=== PATIENT | female | born 1950 | race Caucasian/White ===

== ENCOUNTER → 2017-05-17 | Outpatient (CLI) | payer OTHER | LOC: FIMAGING 13:18 | PROVIDERS: ATTEND Internal Medicine Endocrinology, Diabetes & Metabolism | DX: Z13.820 Encounter for screening for osteoporosis (principal); M85.80 Other specified disorders of bone density and structure, unspecified site; Z82.62 Family history of osteoporosis ==

== ENCOUNTER → 2017-08-11 | Outpatient (CLI) | payer OTHER | LOC: FIMAGING 12:51 | PROVIDERS: ATTEND Internal Medicine | DX: Z12.31 Encounter for screening mammogram for malignant neoplasm of breast (principal); Z86.000 Personal history of in-situ neoplasm of breast; Z90.11 Acquired absence of right breast and nipple | CPT/HCPCS: G0202-52 ==

== ENCOUNTER 2017-08-14 15:42 | Emergency (ER) | payer OTHER ==
[2017-08-14 16:08] VITALS: RESP 18
--- NOTE | 2017-08-14 16:40 | CPEKG ---
Heart Rate: 72 RR Interval: 833 P-R Interval: 172 QRSD Interval: 96 QT Interval: 412 QTC Interval: 451 P [place]: 63 QRS [place]: 23 T Wave [place]: 52 EKG Severity - NORMAL ECG - EKG Impression: SINUS RHYTHM Electronically Signed By: Telma Plasencia 14-Aug-2017 20:46:37
--- NOTE | 2017-08-14 16:56 | EDPHY ---
H & P Time Seen by Provider: 08/14/17 16:28 HPI/ROS: CHIEF COMPLAINT: Left shoulder pain HISTORY OF PRESENT ILLNESS: The patient is an active 66 y/o female complaining of pain under her left scapula, weak and heavy feeling in her left arm, and nausea. She fell walking up the stairs to her apartment almost two weeks ago and caught herself with her left arm. She did not notice any pain, tenderness, swelling, or inability to move her arm. However, she thinks she may have injured her shoulder then. She's had some pain in the left shoulder for a few days. Today around noon, 5 hours ago, she began experiencing pain under her left scapula, weak and heavy feeling in her left arm, and nausea. Yesterday she had massage and acupuncture to the left side of her upper back. She presented to her doctor at [facility] who referred her to the ED for evaluation due to cardiac concerns based on the symptoms. The pain increases turning her head to the left. No change with exertion or with deep inspiration. She denies any chest pain, shortness of breath, numbness, or any other associated symptoms. She denies any precipitating causes. REVIEW OF SYSTEMS: Constitutional: No fever, no chills Eyes: No visual changes ENT: No sore throat Respiratory: No cough, no shortness of breath Cardiac: No chest pain Gastrointestinal: Nausea, no vomiting, no abdominal pain Genitourinary: No hematuria, no dysuria Skin: No rash Neurological: No headache Psychiatric: No depression Past Medical/Surgical History: 1. Mastectomy secondary to breast cancer 2. 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 Smoking Status: Former smoker Physical Exam: General Appearance: Alert, pleasant, does not appear in pain Eyes: Pupils equal and round, no conjunctival pallor or injection ENT, Mouth: Mucous membranes moist Neck: Normal inspection Respiratory: Lungs are clear to auscultation Cardiovascular: Regular rate and rhythm Gastrointestinal: Abdomen is soft and non-tender Neurological: A&O, motor intact to active resistance at finger, wrist, elbow, and shoulder, Strength 5/5, sensory intact to light touch Skin: Warm and dry, no rash Extremities: Suprascapular tenderness, shoulder pain with left shoulder abduction Vascular: Left radial pulse 2+ Psychiatric: Mood and affect normal Constitutional: Initial Vital Signs Temperature (C) 37.4 C 08/14/17 16:05 Heart Rate 76 08/14/17 16:05 Respiratory Rate 18 08/14/17 16:05 Blood Pressure 138/90 H 08/14/17 16:05 O2 Sat (%) 95 08/14/17 16:05 O2 Delivery Mode Room Air Allergies/Adverse Reactions: celecoxib [From Celebrex] Allergy (Mild, Verified 03/25/15 16:43) rash/hives Home Medications: Medication Instructions Recorded ADVAIR HFA 230-21 MCG INHALER 08/14/17 Lexapro 10 MG 08/14/17 Medical Decision Making - Diagnostics EKG Interpretation: EKG interpreted by me reveals normal sinus rhythm, rate 72, no ST/T changes. Interpretation: normal EKG Imaging Results: Imaging Impressions Chest X-Ray 08/14/17 16:56 Impression: COPD/emphysema. Nothing acute identified. Study: X-ray of the Chest Indication: Left shoulder pain Results: X-ray of the chest was obtained. The results of the study are: negative for acute processes. The study was read by the radiologist, Dr. Reddy. I viewed the images myself on the PACS system. ED Course/Re-evaluation: The patient is an active 66 y/o female complaining of left shoulder pain. She fell while walking up the stairs and caught herself with her left arm almost two weeks ago. She initially didn't have any symptoms. Today, around 12:00 PM, five hours ago, she began experiencing subscapular pain in her left shoulder, weak and heavy feeling in her left arm, nausea, and pain in her neck when looking left. Physical exam is normal. I do not detect any weakness in the left upper extremity. In addition the vascular exam is normal. No evidence of neurovascular compromise. 1705: EKG is normal and on evaluation I find her symptoms to likely be due to a musculoskeletal cause rather than cardiac. She has no exertional symptoms and physical exam findings of left shoulder injury. Chest X-ray is ordered. 1846: I reassessed this patient and informed her of the results of her workup which was largely negative. I feel she is safe to be discharged. She agreed. Follow-up instructions and return precautions given. Differential Diagnosis: Differential diagnosis includes does limited to cervical radiculopathy, acute coronary syndrome, aortic dissection, rotator cuff injury. - Data Points Laboratory Results: Laboratory Results 08/14/17 17:55 08/14/17 17:55 Sodium 139 mEq/L mEq/L (134-144) Potassium 4.0 mEq/L mEq/L (3.5-5.2) Chloride 104 mEq/L mEq/L (97-110) Carbon Dioxide 24 mEq/l mEq/l (22-31) Anion Gap 11 mEq/L mEq/L (8-16) BUN 14 mg/dL mg/dL (7-23) Creatinine 0.7 mg/dL mg/dL (0.6-1.0) Estimated GFR > 60 Glucose 83 mg/dL mg/dL (70-100) Calcium 9.6 mg/dL mg/dL (8.5-10.4) Troponin I < 0.012 ng/mL ng/mL (0.000-0.034) Departure - Departure Disposition: Home, Routine, Self-Care Clinical Impression: Left shoulder strain Qualifiers: Encounter type: initial encounter Qualified Code(s): S46.912A - Strain of unspecified muscle, fascia and tendon at shoulder and upper arm level, left arm , initial encounter Condition: Good Instructions: Muscle Strain (ED) Additional Instructions: 1. Take ibuprofen as needed for pain for 5-7 days. 2. Rest your shoulder. Avoid activities that put further strain on your shoulder. Ice as needed 3. Follow-up with your Primary Care Provider tomorrow as planned. 4. Return to the ED for uncontrollable pain or worsening of condition. Adult Pain & Fever Control: We recommend Ibuprofen (Motrin,Advil) for pain and fever control. Your dose is: Ibuprofen 600 mg every 8 hours with food Referrals: Tari Manzo MD [Primary Care Provider] - As per Instructions Report Scribed for: Telma Plasencia Report Scribed by: Ludmila Pereira Date of Report: 08/14/17 Time of Report: 17:01 Physician Review and Approval Statement: 08/14/17 17:01 Portions of this note were transcribed by a medical assistant float. I personally performed a history, physical exam, medical decision making, and confirmed accuracy of information the transcribed note.
[2017-08-14 18:18] VITALS: BP 149/99; PULSE 64; TEMP 98.4; O2SAT 96
== END 2017-08-14 18:54 | disposition home or self-care (01) ==
DX: S46.912A Strain of unspecified muscle, fascia and tendon at shoulder and upper arm level, left arm, initial encounter (principal); Z85.3 Personal history of malignant neoplasm of breast; Z87.891 Personal history of nicotine dependence; W10.8XXA Fall (on) (from) other stairs and steps, initial encounter; Y99.8 Other external cause status; Y93.01 Activity, walking, marching and hiking

== ENCOUNTER 2018-06-17 05:03 | Inpatient (IN) | payer OTHER ==
[2018-06-17] MEDS ORDERED: ONDANSETRON 4 MG/2 ML VIAL IVP ONE (05:06)
[2018-06-17] MEDS ORDERED: ASPIRIN 81 MG CHEWABLE TAB PO ONE (05:06)
[2018-06-17] MEDS ORDERED: NS 1,000 ML IV ONE (05:06)
--- NOTE | 2018-06-17 05:13 | EDPHY ---
H & P Time Seen by Provider: 06/17/18 05:10 HPI/ROS: HPI CHIEF COMPLAINT: Cardiac alert activated by EMS in the field, chest pain HISTORY OF PRESENT ILLNESS: A 67-year-old female, otherwise healthy, presents emergency room with bilateral arm pain, and chest discomfort initially right- sided chest discomfort. This happened approximately 45 min ago she called 911. EMS arrived to find her diaphoretic complaining of chest pain and EKG concerning for pre-hospital ST elevation NC. Upon arrival I did Greet her ER room 2. Where she immediately had an EKG which shows an ST elevation NC inferior leads to [address] depression 1 in aVL, and V1 V2. Concerning for acute ischemia Care currently complains of 4/10 bilateral arm pain and chest pain. Patient denies any history of cardiovascular disease Past Medical History: Denies significant cardiovascular disease history Past Surgical History: Denies significant surgical history Social History: Denies smoking, or drugs. Does have alcohol this evening. 2 glasses of wine. Family History: Noncontributory ROS REVIEW OF SYSTEMS: 10 Systems were reviewed and negative with the exception of the elements mentioned in the history of present illness. Exam Constitutional elderly, nontoxic, however diaphoretic triage nursing summary reviewed, vital signs reviewed, awake/alert. Eyes normal conjunctivae and sclera, EOMI, PERRLA. HENT normal inspection, atraumatic, moist mucus membranes, no epistaxis, neck supple/ no meningismus, no raccoon eyes. Respiratory clear to auscultation bilaterally, normal breath sounds, no respiratory distress, no wheezing. Cardiovascular rate normal, regular rhythm, no murmur, no edema, distal pulses normal. Gastrointestinal soft, non-tender, no rebound, no guarding, normal bowel sounds, no distension, no pulsatile mass. Genitourinary no CVA tenderness. Musculoskeletal no midline vertebral tenderness, full range of motion, no calf swelling, no tenderness of extremities, no meningismus, good pulses, neurovascularly intact. Skin diaphoretic Neurologic awake, alert and oriented x 3, AAOx3, moves all 4 extremities equally, motor intact, sensory intact, CN II-XII intact, normal cerebellar, normal vision, normal speech. Psychiatric normal mood/affect. Heme/Lymph/Immune no lymphadenopathy. Differential diagnosis includes but is not limited to: ACS, atypical chest pain , pneumothorax, pneumonia, pulmonary embolism, aortic dissection, congestive heart failure, tumor, musculoskeletal pain, esophageal pain, GERD, peptic ulcer disease, pancreatitis Medical Decision Making: Plan for this patient IV establishment full front desk monitor obtain EKG upon arrival, troponin, activate cardiac catheterization lab. Will speak with Cardiology. Re-evaluation: 0505: Cardiac catheterization team is been activated 0505: Spoke with Dr. Payne, on-call salon shampoo assistant, he will come and see and evaluate the patient take patient cardiac catheterization. EKG interpretation by me on record in [employer] system. Impression time of EKG 5:06 a.m., sinus rhythm rate of 60, ST elevation lead to 3 AV F. Reciprocal changes in lead [address] depression in lead 1 in aVL, ST depression in lead V1 V2. 0534: Chest x-ray one view reviewed. Negative for acute cardiopulmonary disease. Narrow mediastinum. No pleural effusion. Cardiac silhouette normal size. 0530: Dr. Payne here to take patien to cathode maker. Critical Care: Total Critical Care Time Spent Managing this Patient: 65 Minutes. This time was spent Exclusively with this patient. This Care was exclusive of procedures. The Organ System/life at risk was STEMI CARDIAC This Patient was in Critical Condition because ACUTE NC, STEMI Source: Patient, EMS - Medical/Surgical History Hx Asthma: No Hx Chronic Respiratory Disease: Yes Hx Diabetes: No Hx Cardiac Disease: No Hx Renal Disease: No Hx Cirrhosis: No Hx Alcoholism: No Hx HIV/AIDS: No Hx Splenectomy or Spleen Trauma: No Other PMH: hyperthyroidism. walking PNA. depression. "microscopic colitis" - Social History Smoking Status: Former smoker Constitutional: Initial Vital Signs Heart Rate 63 06/17/18 05:10 Respiratory Rate 18 06/17/18 05:10 Blood Pressure 94/62 L 06/17/18 05:10 O2 Sat (%) 94 06/17/18 05:10 O2 Delivery Mode Room Air Allergies/Adverse Reactions: celecoxib [From Celebrex] Allergy (Mild, Verified 06/17/18 05:09) rash/hives Home Medications: Medication Instructions Recorded Albuterol [Proventil Inhaler HFA 1 - 2 puffs IH Q4H PRN 06/17/18 (*)] Escitalopram Oxalate [Lexapro] 10 mg PO HS 06/17/18 Fluticasone/Salmeterol [Advair Hfa 1 - 2 puffs IH PRN PRN 06/17/18 115-21 Mcg Inhaler] Omeprazole 40 mg PO DAILY 06/17/18 Pseudoephedrine HCl [Sudafed 12 120 mg PO BID PRN 06/17/18 Hour 120mg (*)] Tears/Dextran 70/Hypromellose 1 drop EACHEYE Q2 PRN 06/17/18 [Natural Balance Tears (*)] guaiFENesin [Mucinex 600 MG (*)] 600 mg PO BID PRN 06/17/18 Medical Decision Making - Data Points Laboratory Results: Laboratory Results 06/17/18 05:00 06/17/18 05:00 06/17/18 05:00 Hemoglobin A1c 5.6 % % (4.0-6.0) Estim Average Glucose 114 mg/dL mg/dL (68-126) Medications Given: Acetaminophen (Tylenol) 650 mg PO Q6H PRN PRN Reason: Pain, Mild Stop: 12/14/18 17:37 Last Admin: 06/18/18 20:37 Dose: 325 mg Atorvastatin Calcium (Lipitor) 80 mg PO DAILY SHANNON Stop: 12/14/18 08:59 Last Admin: 06/18/18 10:01 Dose: 80 mg Famotidine (Pepcid) 20 mg PO BID SHANNON Stop: 12/15/18 10:29 Last Admin: 06/18/18 20:32 Dose: 20 mg Sodium Chloride (Ns) 1,000 mls @ 150 mls/hr IV CONT SHANNON Stop: 12/14/18 06:29 Last Admin: 06/17/18 07:30 Dose: 1,000 mls Lisinopril (Zestril) 2.5 mg PO DAILY SHANNON Stop: 12/14/18 09:59 Last Admin: 06/18/18 10:01 Dose: 2.5 mg Nicotine (Nicoderm Cq) 21 mg TD DAILY SHANNON Stop: 12/14/18 08:59 Last Admin: 06/18/18 11:43 Dose: Not Given Ticagrelor (Brilinta) 90 mg PO BID SHANNON Stop: 12/14/18 20:59 Last Admin: 06/18/18 20:32 Dose: 90 mg Discontinued Medications Aspirin (Aspirin) 324 mg PO EDNOW ONE Stop: 06/17/18 05:07 Last Admin: 06/17/18 05:20 Dose: Not Given Sodium Chloride (Ns) 1,000 mls @ 0 mls/hr IV EDNOW ONE; Wide Open PRN Reason: Protocol Stop: 06/17/18 05:07 Last Admin: 06/17/18 05:19 Dose: 1,000 mls Morphine Sulfate (Morphine) 4 mg IVP EDNOW ONE Stop: 06/17/18 05:07 Last Admin: 06/17/18 05:39 Dose: 4 mg Ondansetron HCl (Zofran) 4 mg IVP EDNOW ONE Stop: 06/17/18 05:07 Last Admin: 06/17/18 05:23 Dose: 4 mg Ranitidine HCl (Zantac) 150 mg PO BID SHANNON Stop: 12/15/18 09:59 Last Admin: 06/18/18 11:44 Dose: Not Given Ticagrelor (Brilinta) 180 mg PO ONCE ONE Stop: 06/17/18 06:19 Last Admin: 06/17/18 07:48 Dose: 180 mg Point of Care Test Results: Chemistry 06/17/18 05:08 POC Troponin I 0.04 ng/mL ng/mL (0.00-0.08) Departure - Departure Dis[facility]: [facility] Acute Clinical Impression: Chest pain Qualifiers: Chest pain type: unspecified Qualified Code(s): R07.9 - Chest pain, unspecified STEMI (ST elevation myocardial infarction) Qualifiers: Involved coronary artery: other coronary artery Qualified Code(s): I21.29 - ST elevation (STEMI) myocardial infarction involving other sites Condition: Serious
[2018-06-17 05:20] LABS: PLATELET COUNT 261 10^3/uL (150-400)
[2018-06-17] MEDS ORDERED: fentaNYL 100 MCG/2 ML INJ ONE (05:24)
[2018-06-17] MEDS ORDERED: MIDAZOLAM 2 MG/2 ML VIAL ONE (05:24)
[2018-06-17] MEDS ORDERED: LIDOCAINE 1% 300 MG/30 ML SDV ONE (05:24)
[2018-06-17] MEDS ORDERED: IOPAMIDOL (ISOVUE-370) 150 ML BTL IV ONE (05:24)
[2018-06-17] MEDS ORDERED: ATROPINE SULFATE 1 MG/10 ML SYR ONE (05:31)
[2018-06-17] MEDS ORDERED: EPINEPHrine 1 MG/10 ML SYR IVP ONE (05:31)
[2018-06-17] MEDS ORDERED: NITROGLYCERIN 1,500 MCG/15 ML VIAL MISC ONE (05:31)
--- NOTE | 2018-06-17 05:40 | PDPROPOC ---
Sedation Plan of Care Sedation Plan of Care: vital signs stable, mental status noted, patient educated of risks, benefits, alternatives, patient can tolerate sedation ASA Classification: ASA 3 Planned drugs: fentanyl, midazolam Mallampati Score: Class 1 Mallampati Reference Image: Patient passed 3-3-2 rule?: Yes
--- NOTE | 2018-06-17 05:44 | PDGENHP ---
History and Physical - Chief Complaint Cardiac alert - History of Present Illness 67-year-old female no prior cardiovascular history, history of hypertension currently on lifestyle alone, history of tobacco abuse with ongoing smoking, no history of diabetes or hypertension who woke 45 min prior to my arrival with the acute onset of bilateral arm pain associated with nausea vomiting diaphoresis and shortness of breath. She activated 911. On arrival, EKG revealed ST-elevation inferior leads cardiac alert was activated. On arrival to the emergency department she was hemodynamically stable. On my arrival patient was continued to have 7/10 discomfort radiating into both arms associated with continued nausea shortness of breath and anxiety. She denies PND orthopnea. She has had no syncope or near syncope. The patient is pain does not radiate to her abdomen. It is not associated with hemoptysis or melena. She does have a worsening cough. History Information - Allergies/Home Medication List Allergies/Adverse Reactions: celecoxib [From Celebrex] Allergy (Mild, Verified 06/17/18 05:09) rash/hives Home Medications: ADVAIR HFA 230-21 MCG INHALER 08/14/17 [Last Taken Unknown] Lexapro 10 MG 08/14/17 [Last Taken Unknown] I have personally reviewed and updated: family history, medical history, social history, surgical history - Past Medical History hypertension - Surgical History Reports: no pertinent surgical hx - Family History Positive for: non-pertinent - Social History Smoking Status: Current every day smoker Alcohol Use: Occasionally (She lives alone., her son lives in [place].) Review of Systems Review of Systems: Constitutional: Reports: chills. Denies: fever EENMT: Reports: no symptoms Cardiac: Reports: chest pain. Denies: edema, irregular heart rate, lightheadedness, palpitations, syncope Respiratory: Reports: cough, shortness of breath. Denies: wheezing Gastrointestinal: Reports: nausea. Denies: black stools, constipation, diarrhea Genitourinary: Reports: no symptoms Muscolosketal: Reports: no symptoms Skin: Reports: no symptoms Neurological: Reports: anxiety Hematologic/Lymphatic: Reports: no symptoms Immunologic/Allergy: Reports: no symptoms Physical Exam Physical Exam: Temp Pulse Resp BP Pulse Ox 36.3 C 70 18 107/74 97 06/17/18 05:20 06/17/18 05:40 06/17/18 05:40 06/17/18 05:40 06/17/18 05:40 O2 (L/minute) 2 Constitutional: uncomfortable Eyes: PERRL, anicteric sclera, No icteric sclera Ears, Nose, Mouth, Throat: moist mucous membranes Cardiovascular: regular rate and rhythym, no murmur, rub, or gallop, No JVD Peripheral Pulses: 1+: carotid (R), carotid (L), dorsalis-pedis (R), dorsalis- pedis (L), 2+: femoral (R), femoral (L) Respiratory: rhonchi Gastrointestinal: normoactive bowel sounds, soft, non-tender abdomen, no palpable masses, No tenderness Genitourinary: no bladder fullness Skin: warm, normal color, No rash Musculoskeletal: full muscle strength, No muscular tenderness Neurologic: AAOx3, sensation intact bilaterally, No facial droop Psychiatric: anxious Lymph, Heme, Immunologic: no cervical LAD, no supraclavicular LAD Lab Data & Imaging Review 06/17/18 05:00 06/17/18 05:00 WBC 10.09 10^3/uL (3.80-9.50) H 06/17/18 05:00 RBC 3.72 10^6/uL (4.18-5.33) L 06/17/18 05:00 Hgb 13.0 g/dL (12.6-16.3) 06/17/18 05:00 Hct 37.8 % (38.0-47.0) L 06/17/18 05:00 MCV 101.6 fL (81.5-99.8) H 06/17/18 05:00 MCH 34.9 pg (27.9-34.1) H 06/17/18 05:00 MCHC 34.4 g/dL (32.4-36.7) 06/17/18 05:00 RDW 13.2 % (11.5-15.2) 06/17/18 05:00 Plt Count 261 10^3/uL (150-400) 06/17/18 05:00 MPV 10.8 fL (8.7-11.7) 06/17/18 05:00 Sodium 141 mEq/L (135-145) 06/17/18 05:00 Potassium 3.8 mEq/L (3.3-5.0) 06/17/18 05:00 Chloride 109 mEq/L (97-110) 06/17/18 05:00 Carbon Dioxide 23 mEq/l (22-31) 06/17/18 05:00 Anion Gap 9 mEq/L (8-16) 06/17/18 05:00 BUN 12 mg/dL (7-23) 06/17/18 05:00 Creatinine 0.7 mg/dL (0.6-1.0) 06/17/18 05:00 Estimated GFR > 60 06/17/18 05:00 Glucose 116 mg/dL (70-100) H 06/17/18 05:00 Calcium 9.6 mg/dL (8.5-10.4) 06/17/18 05:00 Magnesium 2.1 mg/dL (1.6-2.3) 06/17/18 05:00 Total Bilirubin 0.2 mg/dL (0.1-1.4) 06/17/18 05:00 Conjugated Bilirubin 0.1 mg/dL (0.0-0.5) 06/17/18 05:00 Unconjugated Bilirubin 0.1 mg/dL (0.0-1.1) 06/17/18 05:00 AST 28 IU/L (14-46) 06/17/18 05:00 ALT 38 IU/L (9-52) 06/17/18 05:00 Alkaline Phosphatase 77 IU/L (38-126) 06/17/18 05:00 POC Troponin I 0.04 ng/mL (0.00-0.08) 06/17/18 05:08 Total Protein 5.9 g/dL (6.3-8.2) L 06/17/18 05:00 Albumin 3.6 g/dL (3.5-5.0) 06/17/18 05:00 Lipase 106 IU/L (23-300) 06/17/18 05:00 EKG additional interpertation: EKG reveals sinus rhythm with lateral T-wave inversions and 1-2 mm in for inferior ST elevation. Assessment & Plan Assessment: Chest pain (Acute) STEMI (ST elevation myocardial infarction) (Acute) Impression: 67-year-old female with tobacco was significant cardiovascular risk associated with hypertension 45 min of arm and chest discomfort associated with ST elevation consistent with myocardial infarction. Patient taken directly to cardiac catheterization lab for diagnostic/ therapeutic angiogram/PTCA. Risks and benefits were discussed. Will proceed. At this moment patient is relatively stable with soft blood pressure likely indicative of RV involvement. She will be aggressively hydrated. Secondary prevention will be addressed postprocedure.
[2018-06-17] MEDS ORDERED: BIVALIRUDIN 250 MG/5 ML VIAL IV ONE (05:52)
[2018-06-17 05:59] LABS: INR 0.91 (0.83-1.16); PROTIME(PATIENT) 12.5 SEC (12.0-15.0)
[2018-06-17] MEDS ORDERED: LORazepam 2 MG/ML INJ IVP PRN (06:18)
[2018-06-17] MEDS ORDERED: ONDANSETRON 4 MG/2 ML VIAL IVP PRN (06:18)
[2018-06-17] MEDS ORDERED: TICAGRELOR 90 MG TAB PO ONE (06:18)
[2018-06-17] MEDS ORDERED: TICAGRELOR 90 MG TAB ONE (06:21)
--- NOTE | 2018-06-17 06:28 | PDDXCAT ---
Diagnostic Cath Note - . Date: 06/17/18 Soap Grinder: Elmer Indication: other (STEMI with hypotension) - Procedure Access: right groin Procedure: left heart catheterization, coronary angiography, left ventriculogram - Materials Left Heart Cath size: 6F Left Heart Cath materials: standard multipack (JL4, JR4, pigtail) - Findings-Left Heart Catheterization LM: Unobstructed LAD: Unobstructed LCX: Unobstructed RCA: Dominant: Thrombotic occlusion mid RCA EDP: 15 mm of mercury postprocedure LVEF: 50% with 1 to 2+ MR Wall motion: Inferior akinesis Complications: None Estimated blood loss: <50ml Closure method: Angioseal Assessment: Thrombotic occlusion of the mid RCA Plan: PCI Intervention: Procedure: PCI and stenting of the mid RCA. After reviewing diagnostic angiograms elected to proceed with emergency PCI. Patient was anticoagulated with Angiomax. Using a 6 Khmer JR4 guiding catheter the right coronary selectively intubated. Using a 0.014 luge wire the thrombotic occlusion was crossed. This re-established antegrade flow. It was primarily stented with a 2.75 x 12 mm synergy stent taken to 18 atmospheres. Repeat angiograms revealed a pseudo lesion proximally with spasm. There was dampening of the blood pressure associated with deep seating of the catheter. It was withdrawn. The patient was administered IC nitroglycerin. Repeat angiograms revealed SHERRY grade 3 flow with resolution of pseudo lesion. With administration of nitroglycerin and sedation patient's blood pressure was 70 systolic. She was supported with IV fluids. Left ventricular function was normal. She was observed. Pain resolved. She is taken to the ICU for continued care. Conclusions: Thrombotic occlusion of the mid RCA status post successful PCI and stenting. Plan: Aggressive secondary prevention including low-dose Tapan inhibitor when her blood pressure improves. Low-dose beta-carlos. Smoking cessation. High-dose statin therapy. Dual antiplatelet therapy with Brilinta and aspirin. Clinical follow-up Patient Problems: Problems Problem Status Onset Chest pain Acute STEMI (ST elevation myocardial infarction) Acute
[2018-06-17] MEDS ORDERED: NS 1,000 ML IV SCH (06:30)
--- NOTE | 2018-06-17 06:59 | CPEKG ---
Test Reason : OPEN Blood Pressure : / mmHG Vent. Rate : 060 BPM Atrial Rate : 060 BPM P-R Int : 185 ms QRS Dur : 098 ms QT Int : 439 ms P-R-T Axes : 068 049 101 degrees QTc Int : 439 ms Sinus rhythm Inferior infarct, acute (RCA) Probable RV involvement, suggest recording right precordial leads Confirmed by Yury Parham ([id number]) on 06/17/2018 6:58:53 AM Referred By: Confirmed By:Yury Parham
--- NOTE | 2018-06-17 09:24 | ECHO ---
[email or web address] [address] [address] Main: [phone] Fax: Transthoracic Echocardiogram Name: SAUD MAXWELL MR#: [id number] Study Date: 06/17/2018 Study Time: 08:07 AM Date of : 1950 Age: 67 year(s) Height: 162.6 cm (64 in.) Weight: 58.97 kg (130 lb.) BSA: 1.63 m2 Gender: Female Examination: Echo Indication: Exclude ruptured papillary muscle/Chest pain Image Quality: Contrast: Requested by: Antione Payne BP: 91 mmHg/53 mmHg Heart Rate: Rhythm: Indication: Exclude ruptured papillary muscle/Chest pain Procedure Staff [employer]: Sherron Dowd RDCS Reading Physician: Antione Payne MD Requesting Provider: Conclusions: No pericardial effusion. Ejection fraction 60%. Mild inferoseptal hypokinesis. Mild mitral regurgitation. Mitral valve apparatus is intact. Measurements: Chambers Valvular Assessment AV/MV Valvular Assessment TV/PV Normal Normal Normal Name Value Range Name Value Range Name Value Range Ao Awa (MM): 3.2 cm (2.2 cm-3.7 AV Vmax: 1.21 m/s (1 m/s-1.7 cm) m/s) IVSd (2D): 0.9 cm (0.6 cm-1.1 AV meanP mmHg ( - ) cm) MV E Vmax: 0.72 m/s ( - ) LVDd (2D): 4.3 cm (3.9 cm-5.3 MV A Vmax: 0.58 m/s ( - ) cm) MV E/A: 1.24 ( - ) LVDs (2D): 2.8 cm (2.1 cm-4 cm) LVPWd (2D): 1.1 cm ( - ) LVEF (MOD4): 60 % (>=55 %) EF Range: 60-65 % Continued Measurements: Chambers Valvular Assessment AV/MV Name Value Name Value LADs: 3.6 cm MV E' Septal: 0.07 m/s LADs Lon.4 cm MV E/E' Septal: 9.70 LA Area: 13.7 cm2 MV E/E' Lateral: 10.30 Additional Vessels Patient: SAUD MAXWELL Study Date: 06/17/2018 Page 1 of 2 08:07 AM Name Value Ao Ascendin.4 cm Findings: Left Ventricle: Normal size left ventricle. No LV hypertrophy. Normal global systolic LV function. The ejection fraction is estimated to be 60-65 %. Normal diastolic LV function. Question basal/basal inferoseptal hypokinesis. All remaining LV segments have normal motion.. Right Ventricle: Normal size right ventricle. Left Atrium: The left atrium is normal in size. Right Atrium: The right atrium is normal in size. Mitral Valve: The mitral valve is normal in appearance and function. Mild mitral valve regurgitation is present. Aortic Valve: The aortic valve is normal in appearance and function. Tricuspid Valve: The tricuspid valve is normal in appearance and function. Trivial to mild tricuspid valve regurgitation. Pulmonic Valve: Pulmonary valve not well visualized. Aorta: The aorta is normal. Pericardium: No pericardial effusion. There is pericardial fat. (No Signature Object) Patient: SAUD MAXWELL Study Date: 06/17/2018 Page 2 of 2 08:07 AM [id number]
--- NOTE | 2018-06-17 09:37 | ASMTCMCOM ---
CM Note CM Note Notes: 67yr old female admitted for CP, STEMI, N/V. She has a Hx of smoking and HTN. Patient lives alone and has 2 sons who are supportive. Patient to go to [facility]. CM to follow for discharge needs. Date Signed: 06/17/2018 09:37 AM Electronically Signed By:Lissa Choudhury LCSW
[2018-06-17] MEDS: NICOTINE 21 MG/24 HR PATCH TD SCH (09:41)
[2018-06-17] MEDS: LISINOPRIL 2.5 MG TAB PO SCH (10:36)
[2018-06-17] MEDS: ATORVASTATIN CALCIUM 40 MG TAB PO SCH (10:36)
[2018-06-17 11:32] LABS: CREATINE KINASE 399 IU/L (0-156)
--- NOTE | 2018-06-17 12:06 | GCON ---
MANAGER COMMERCIAL CONSULTATION REASON FOR ADMISSION: Coronary artery disease status post stent. HISTORY OF PRESENT ILLNESS: The patient is a very pleasant 67-year-old white female with a past [facility] history of hypertension. She began having acute onset of bilateral arm pain. This was associate d nausea, vomiting, as well as breathlessness. She is brought to the emergency room, was subsequentl y taken to the cardiac catheterization lab where a stent was placed to the mid RCA. In discussion wi th the patient, she states overall she is feeling quite well. She denies any chest pain currently. There is no breathlessness. She denies any nausea, vomiting, or diarrhea. She is resting comfortabl y in no acute distress. REVIEW OF SYSTEMS: A 10-point review of systems is performed and negative with exception of what is listed in HPI. PAST MEDICAL HISTORY: Significant for hypertension. ALLERGIES: To Celebrex. SOCIAL HISTORY: She has is 50+ pack-year smoker and continues to smoke. She admits to infrequent al cohol use. She is with children. She has lived in [place] for many years but is originall y from [place]. FAMILY HISTORY: Noncontributory. PHYSICAL EXAM: VITAL SIGNS: Blood pressure is 99/70, pulse 75, respiration 18, she is afebrile, oxy gen saturation 92% on room air. GENERAL: She is a well-developed, well-nourished 67-year-old white female who is resting comfortably in no acute distress. HEENT: Eyes are CHAU, EOMI. Throat shows n o erythema or tonsillar hypertrophy. NECK: Supple. There is no cervical adenopathy. HEART: Regul ar rate and rhythm without murmurs, rubs, gallops. LUNGS: Clear to auscultation. No wheezes or rho nchi. ABDOMEN: Soft, nontender. Bowel sounds are present in all 4 quadrants. EXTREMITIES: No clu bbing, cyanosis, or edema. LABORATORIES: White count is 10, hemoglobin 13, hematocrit 37, platelet count 261. INR is 0.91. So dium 141, potassium 3.9, chloride 110, CO2 22, BUN 12, creatinine 0.7, glucose is 117. Troponins are positive x1. Echocardiogram reveals a normal ejection fraction. Valves appear normal. IMPRESSION: 1. Coronary artery disease. 2. Status post cardiac stent. 3. Hypertension. RECOMMENDATIONS: 1. Adequate pain control. 2. DVT and PE prophylaxis. 3. Stress ulcer prophylaxis. 4. Early ambulation. 5. Patient is encouraged to quit smoking cigarettes. /[id number]/MODL
--- NOTE | 2018-06-17 12:34 | PDMN ---
Medical Necessity Medical necessity: Pt meets IP criteria per MD & MCG M-230; est los >2 mn for eval/tx of STEMI; requiring further ICU monitoring, emergent cardiac cath, med management & aggressive IVFs (150 mls/hr); hx HTN, smoker; per H&P & order
[2018-06-17 13:45] LABS: CREATINE KINASE 537 IU/L (0-156)
[2018-06-17] MEDS: ACETAMINOPHEN 325 MG TAB PO PRN (17:44)
[2018-06-17 18:53] LABS: CREATINE KINASE 561 IU/L (0-156)
[2018-06-17] MEDS: TICAGRELOR 90 MG TAB PO SCH (21:28)
--- NOTE | 2018-06-17 23:39 | CPEKG ---
Test Reason : OPEN Blood Pressure : / mmHG Vent. Rate : 075 BPM Atrial Rate : 074 BPM P-R Int : 179 ms QRS Dur : 104 ms QT Int : 434 ms P-R-T Axes : 080 062 058 degrees QTc Int : 485 ms Sinus rhythm Atrial premature complex Inferior MT pattern no longer present Confirmed by Patricio Goodman ([id number]) on 06/17/2018 11:38:32 PM Referred By: Confirmed By:Patricio Goodman
[2018-06-18 00:23] LABS: CREATINE KINASE 395 IU/L (0-156)
[2018-06-18 05:54] LABS: PLATELET COUNT 198 10^3/uL (150-400)
--- NOTE | 2018-06-18 08:43 | PDINTPN ---
Trains Service Conductor Progress Note Assessment/Plan: Assessment/plan: * Acute [place] * Hypertension * Status post cardiac stent * Tobacco abuse-patient encouraged to quit smoking * Pain-resolved * PT/OT * Out of bed to chair * Disposition-okay for PCU 06/18/18 08:42 Subjective: Resting comfortably. No current complaints. Wishes to go home. Objective: Vital Signs Temp Pulse Resp BP Pulse Ox 36.4 C 68 17 112/66 93 06/18/18 08:00 06/18/18 08:00 06/18/18 08:00 06/18/18 08:00 06/18/18 08:00 Laboratory Results 06/18/18 05:35 06/18/18 05:35 06/17/18 06/18/18 06/19/18 05:59 05:59 05:59 Intake Total 1000 1233 Output Total 0 1000 Balance 1000 233 PT 12.5 SEC (12.0-15.0) 06/17/18 05:00 INR 0.91 (0.83-1.16) 06/17/18 05:00 Laboratory Results 06/18/18 05:35 06/18/18 05:35 06/17/18 06/17/18 06/17/18 23:30 16:10 13:10 Creatine Kinase 395 IU/L H IU/L 561 IU/L H IU/L 537 IU/L H IU/L (0 - 156) (0 - 156) (0 - 156) CK-MB (CK-2) Fraction 23.80 ng/mL H ng/mL 41.20 ng/mL H ng/mL 43.40 ng/mL H ng/mL (0.00 - 4.55) (0.00 - 4.55) (0.00 - 4.55) CK-MB (CK-2) % 6.0 % H % 7.3 % H % 8.1 % H % (0.0 - 4.0) (0.0 - 4.0) (0.0 - 4.0) Creatine Kinase Interp POSITIVE H POSITIVE H POSITIVE H Troponin I 12.000 ng/mL H ng/mL 22.100 ng/mL H ng/mL 20.700 ng/mL H ng/mL (0.000 - 0.034) (0.000 - 0.034) (0.000 - 0.034) 06/17/18 10:30 Creatine Kinase 399 IU/L H IU/L (0 - 156) CK-MB (CK-2) Fraction 33.00 ng/mL H ng/mL (0.00 - 4.55) CK-MB (CK-2) % 8.3 % H % (0.0 - 4.0) Creatine Kinase Interp POSITIVE H Troponin I 11.000 ng/mL H ng/mL (0.000 - 0.034) - Time Spent With Patient Time Spent With Patient: 35 min of time spent with patient, over 1/2 involved with coordination of care or counseling Case discussed with nursing Physical Exam - Physical Exam General Appearance: WD/WN, alert, no apparent distress EENT: PERRL/EOMI, normal ENT inspection, pharynx normal, TMs normal Neck: non-tender, full range of motion, supple, normal inspection Respiratory: chest non-tender, lungs clear, normal breath sounds Cardiac/Chest: normal peripheral pulses, regular rate, rhythm Abdomen: normal bowel sounds, non-tender, soft Pelvic Exam: deferred Rectal: deferred Skin: normal color, warm/dry Lymphatic: no adenopathy Extremities: normal range of motion, non-tender, normal inspection, normal capillary refill Neuro/Psych: no motor/sensory deficits, alert, normal mood/affect, oriented x 3 ICD10 Worksheet Patient Problems: Problems Problem Status Onset Chest pain Acute STEMI (ST elevation myocardial infarction) Acute
--- NOTE | 2018-06-18 09:27 | SOAPPROG ---
SOAP Progress Note Assessment/Plan: Assessment: 1. Status post inferior wall myocardial infarction with PCI to the right coronary 2. History of mitral valve prolapse 3. Hypertension history 4. GERD 5. Ear congestion. Procedures: Left heart catheterization PCI and stenting of the mid right coronary artery. Echocardiography. Consultation: Critical Care Medicine Impression: Day 1 status post IM I. Patient is hemodynamically stable without compromise. Echocardiogram showed an intact mitral valve. There is a small inferobasilar scar. Metabolic profile remained stable. Discussed concerns related to osteoporosis and need for chronic H2 blockers. Discussed long-term use of aspirin in the setting of reflux. Discussed dual antiplatelet therapy uninterrupted in light of drug-eluting stent. Plan: Transfer to telemetry. Advanced activity. Plan for discharge tomorrow. 06/18/18 09:23 Subjective: Doing well without further chest pain/arm pain. No shortness of breath PND orthopnea. Objective: Laboratory Tests 06/17/18 06/17/18 06/17/18 10:30 13:10 16:10 Creatine Kinase 399 H 537 H 561 H Troponin I 11.000 H 20.700 H 22.100 H NT-Pro-B Natriuret Pep 06/17/18 06/18/18 23:30 05:35 Creatine Kinase 395 H Troponin I 12.000 H NT-Pro-B Natriuret Pep 1700 H Vital Signs Temp Pulse Resp BP Pulse Ox 36.4 C 68 17 112/66 93 06/18/18 08:00 06/18/18 08:00 06/18/18 08:00 06/18/18 08:00 06/18/18 08:00 Laboratory Results 06/18/18 05:35 06/18/18 05:35 06/17/18 06/18/18 06/19/18 05:59 05:59 05:59 Intake Total 1000 1233 Output Total 0 1000 Balance 1000 233 PT 12.5 SEC (12.0-15.0) 06/17/18 05:00 INR 0.91 (0.83-1.16) 06/17/18 05:00 Physical Exam - Physical Exam General Appearance: alert, no apparent distress EENT: PERRL/EOMI, normal ENT inspection Neck: non-tender, full range of motion, supple Respiratory: lungs clear Cardiac/Chest: normal peripheral pulses, regular rate, rhythm, No edema, No gallop, No JVD Peripheral Pulses: 2+: femoral (R), femoral (L) Abdomen: normal bowel sounds, non-tender, soft, No organomegaly Back: Normal inspection Skin: normal color, No rash Lymphatic: no adenopathy Extremities: No pedal edema, No calf tenderness Neuro/Psych: no motor/sensory deficits, alert, No facial droop ICD10 Worksheet Patient Problems: Problems Problem Status Onset Chest pain Acute STEMI (ST elevation myocardial infarction) Acute Review of Systems - Review of Systems Constitutional: no symptoms reported EENTM: nose congestion, other (Ear congestion) Cardiac: no symptoms reported Gastrointestinal/Abdominal: other (Reflux) Genitourinary: no symptoms Musculoskelatal: no symptoms Skin: no symptoms Neurological: no symptoms Hematologic/Lymphatic: no symptoms reported Immunologic/allergic: no symptoms reported All Other Systems: Reviewed and Negative
[2018-06-18] MEDS ORDERED: RANITIDINE SYRUP 15 MG/1 ML UDSYR PO SCH (09:30)
[2018-06-18] MEDS ORDERED: RANITIDINE HCL 150 MG/10 ML UDCUP PO SCH (10:00)
[2018-06-18] MEDS: ATORVASTATIN CALCIUM 40 MG TAB PO SCH (10:01)
[2018-06-18] MEDS: TICAGRELOR 90 MG TAB PO SCH ×2 (10:01→20:32)
[2018-06-18] MEDS: LISINOPRIL 2.5 MG TAB PO SCH (10:01)
[2018-06-18] MEDS: NICOTINE 21 MG/24 HR PATCH TD SCH (11:43)
[2018-06-18] MEDS: FAMOTIDINE 20 MG TAB PO SCH ×2 (11:43→20:32)
[2018-06-18] MEDS: ACETAMINOPHEN 325 MG TAB PO PRN (20:37)
[2018-06-19 07:54] VITALS: BP 116/68
[2018-06-19] MEDS: ATORVASTATIN CALCIUM 40 MG TAB PO SCH (07:55)
[2018-06-19] MEDS: LISINOPRIL 2.5 MG TAB PO SCH (07:55)
[2018-06-19] MEDS: TICAGRELOR 90 MG TAB PO SCH (07:55)
[2018-06-19] MEDS: FAMOTIDINE 20 MG TAB PO SCH (07:55)
--- NOTE | 2018-06-19 09:15 | CPEKG ---
Test Reason : OPEN Blood Pressure : / mmHG Vent. Rate : 068 BPM Atrial Rate : 068 BPM P-R Int : 171 ms QRS Dur : 103 ms QT Int : 453 ms P-R-T Axes : 070 -07 -57 degrees QTc Int : 482 ms Sinus rhythm Atrial premature complex Abnormal T, consider ischemia, inferior leads Confirmed by Moy Neves ([id number]) on 06/19/2018 9:15:01 AM Referred By: Confirmed By:Moy Neves
[2018-06-19] MEDS ORDERED: ALBUTEROL 60 PUFFS/8 GM MDI IH PRN (09:16)
[2018-06-19] MEDS ORDERED: Fluticasone/Salmeterol [Advair Hfa 115-21 Mcg Inhaler] IH PRN (09:16)
[2018-06-19] MEDS ORDERED: guaiFENesin 600 MG TAB.ER PO PRN (09:16)
[2018-06-19] MEDS ORDERED: TEARS/DEXTRAN 70/HYPROMELLOSE 15 ML OPHT.BTL EACHEYE PRN (09:16)
[2018-06-19] MEDS ORDERED: ESCITALOPRAM OXALATE 10 MG TAB PO SCH (09:30)
--- NOTE | 2018-06-19 09:32 | PDDCSUM ---
Discharge Summary Discharge Summary: Admission date 06/17/2018 Discharge date 06/19/2018 Admission diagnosis cardiac alert with ST segment elevation myocardial infarction with hypotension Discharge diagnosis: Inferior wall myocardial infarction status post RCA stenting Mitral valve prolapse with xtac-cy-[id number] mitral regurgitation Hyperlipidemia Procedures done during this hospitalization left heart catheterization coronary ventricular angiography with PCI and stenting of the right coronary artery. Echocardiography. Consultation: Cardiology, critical Care Medicine Medications per discharge instructions. Follow-up Dr. Tari Manzo primary care 10 days Follow up Antione Payne 1 week Referral cardiac rehabilitation Hospital course: 67-year-old female admitted through the cardiac alert system with ST segment elevation in inferior leads associated with hypotension. She was taken directly to the cardiac catheterization lab and found to have occluded right coronary artery. She underwent successful PCI and stenting. Ventriculography at that time showed significant mitral regurgitation. At that point it was unclear whether this was chronic or acute. Stat echocardiogram was performed revealing mitral valve prolapse with a intact mitral valve apparatus. Turns out patient has a history of mitral valve prolapse in the past and had been previously evaluated. Her left ventricular function was preserved. Patient was monitored in the intensive care unit. In light of likely right ventricular involvement she was given aggressive hydration. Blood pressure improved. Symptoms resolved. She stabilized post procedure. She was observed for 48 hr without significant ventricular arrhythmias. Hemodynamics remained stable. She was started on aggressive secondary prevention which she tolerated well. Today patient's blood pressure is 120/70. Heart rate is 62. She has no JVP. She had a regular rate and rhythm without gallop. Her lungs were clear. Her puncture site was healing well without ecchymosis erythema or edema. There was no vascular bruit. Distal pulses were intact. Conclusions: Status post inferior wall myocardial infarction treated with primary angioplasty. Patient be continued on aggressive secondary prevention. Goal LDL cholesterol less than 70 mg/d L. Cardiac rehabilitation with clinical follow-up. Questions were answered with her son. Will proceed. She is discharged today in stable condition.
[2018-06-19] MEDS ORDERED: ASPIRIN 81 MG CHEWABLE TAB PO SCH (09:45)
--- NOTE | 2018-06-19 10:32 | ASMTCMCOM ---
CM Note CM Note Notes: Patient has been medically cleared for discharge to home, No needs identified, CM available should other needs arise. Plan: Home independently. Date Signed: 06/19/2018 10:31 AM Electronically Signed By:Terri Shannon RN
--- NOTE | 2018-06-19 10:39 | ASDISCHSUM ---
Discharge Information Plan Status:Home with Home Health Medically Cleared to Leave:06/19/2018 Discharge Date:06/19/2018 CM D/C Disposition: ADT D/C Disposition:Home, Routine, Self-Care Projected Discharge Date:06/19/2018 Transportation at D/C:Family Discharge Delay Reason: Follow-Up Date:06/19/2018 Discharge Slot: Final Diagnosis:CP, STEMI Placement Information Patient Contact Information Contact Name:GHADA Relationship:Theron Address: Work Phone: City: [facility] Phone: State/Zip Code: Email: Financial Information Financial Class:Medicare Primary Plan Desc:MEDICARE INPATIENT Primary Plan Number:[id number] Secondary Plan Desc:GELY Secondary Plan Number:[id number] Assessment Information [facility] CM Progress Note CM Note CM Note Notes: 67yr old female admitted for CP, STEMI, N/V. She has a Hx of smoking and HTN. Patient lives alone and has 2 sons who are supportive. Patient to go to [facility]. CM to follow for discharge needs. Date Signed: 06/17/2018 09:37 AM Electronically Signed By:Lissa Choudhury LCSW [facility] CM Progress Note CM Note CM Note Notes: Patient has been medically cleared for discharge to home, No needs identified, CM available should other needs arise. Plan: Home independently. Date Signed: 06/19/2018 10:31 AM Electronically Signed By:Terri Shannon RN Intervention Information Intervention Type:*IM-Signed Date of Service:06/19/2018 10:35 AM Patient Type:Inpatient Staff Member:Mandi Romo Hours: Discipline: Severity: Comment:
[2018-06-19] MEDS: NICOTINE 21 MG/24 HR PATCH TD SCH (11:26)
== END 2018-06-19 11:26 | disposition home or self-care (01) | DRG 247 ==
LOC: EDUNIT# → F2N 07:00 → F2W 06-18 11:22
PROVIDERS: ADMIT Family Medicine; ATTEND Family Medicine
PROC: B2111ZZ Fluoroscopy of Multiple Coronary Arteries using Low Osmolar Contrast (ICD-10-PCS; principal; 2018-06-17)
PROC: 027034Z Dilation of Coronary Artery, One Artery with Drug-eluting Intraluminal Device, Percutaneous Approach (ICD-10-PCS; principal; 2018-06-17)
PROC: B2151ZZ Fluoroscopy of Left Heart using Low Osmolar Contrast (ICD-10-PCS; principal; 2018-06-17)
PROC: 4A023N7 Measurement of Cardiac Sampling and Pressure, Left Heart, Percutaneous Approach (ICD-10-PCS; principal; 2018-06-17)
DX: I21.19 ST elevation (STEMI) myocardial infarction involving other coronary artery of inferior wall (principal); I10 Essential (primary) hypertension; E78.5 Hyperlipidemia, unspecified; K21.9 Gastro-esophageal reflux disease without esophagitis; I34.1 Nonrheumatic mitral (valve) prolapse; Z87.891 Personal history of nicotine dependence
CPT/HCPCS: 84484-PO; 96374; C1760; C1769; C1874; C1887; C9606; J0461; J0583; J1644; J2250; J2270; J2405; J3010; Q9967

== ENCOUNTER → 2018-08-01 | Outpatient (CLI) | payer OTHER | LOC: BMCIMAGING 13:22 | PROVIDERS: ATTEND Emergency Medicine | DX: J98.4 Other disorders of lung (principal); R05 Cough ==

== ENCOUNTER → 2018-08-13 | Outpatient (CLI) | payer OTHER | LOC: FIMAGING 12:33 | PROVIDERS: ATTEND Internal Medicine Hematology & Oncology | DX: Z12.31 Encounter for screening mammogram for malignant neoplasm of breast (principal); Z85.3 Personal history of malignant neoplasm of breast; Z90.11 Acquired absence of right breast and nipple; Z98.82 Breast implant status ==

== ENCOUNTER → 2018-08-16 | Outpatient (CLI) | payer OTHER | LOC: BRMIMAGING 09:47 | PROVIDERS: ATTEND Internal Medicine | DX: N63.20 Unspecified lump in the left breast, unspecified quadrant (principal); Z90.11 Acquired absence of right breast and nipple; Z85.3 Personal history of malignant neoplasm of breast | CPT/HCPCS: 76641-PO ==

== ENCOUNTER → 2018-09-21 | Outpatient (CLI) | payer OTHER ==
[~2018-09-21] MED LIST: GADOBUTROL 10 ML VIAL IVP ONE
== END ==
LOC: FIMAGING 12:45
PROVIDERS: ATTEND Internal Medicine Hematology & Oncology
DX: N63.20 Unspecified lump in the left breast, unspecified quadrant (principal); Z85.3 Personal history of malignant neoplasm of breast; Z90.11 Acquired absence of right breast and nipple
CPT/HCPCS: 0159T; A9585; C8908

== ENCOUNTER → 2018-10-03 | Outpatient (CLI) | payer OTHER ==
[~2018-10-03] MED LIST changes: +BUPIVACAINE 0.5% 30 ML SDV ONE; -GADOBUTROL 10 ML VIAL IVP ONE; +LIDOCAINE 1% 300 MG/30 ML SDV ONE; +THROMBIN (BOVINE) 5,000 UNIT VIAL TP ONE
== END ==
LOC: FIMAGING 09-10 07:18
PROVIDERS: ATTEND Internal Medicine Hematology & Oncology
PROC: 0HBU3ZX Excision of Left Breast, Percutaneous Approach, Diagnostic (ICD-10-PCS; principal; 2018-10-03)
DX: D05.12 Intraductal carcinoma in situ of left breast (principal)

== ENCOUNTER 2018-11-16 07:56 | Observation (INO) | payer OTHER ==
[2018-11-16] MEDS ORDERED: ceFAZolin 2 GM/DEXTROSE 100 ML IV ONE (08:27)
[2018-11-16] MEDS ORDERED: LR 1,000 ML IV ONE (08:28)
[2018-11-16] MEDS ORDERED: LIDOCAINE 1% 2 ML INJ ID PRN (08:28)
[2018-11-16 09:04] LABS: PLATELET COUNT 188 10^3/uL (150-400)
[2018-11-16] MEDS ORDERED: METHYLENE BLUE 0.5% 50 MG/10 ML AMP ONE (10:31)
[2018-11-16] MEDS ORDERED: GENTAMICIN SULFATE 80 MG/2 ML VIAL ONE (10:31)
[2018-11-16] MEDS ORDERED: BUPIVACAINE 0.25% 30 ML SDV ONE (10:31)
[2018-11-16] MEDS ORDERED: THROMBIN (BOVINE) 20,000 UNIT SPRAY TP ONE (10:31)
[2018-11-16] MEDS ORDERED: BACITRACIN ZINC 0.5 OZ OINTTUBE TP ONE (10:31)
[2018-11-16] MEDS ORDERED: ceFAZolin 1 GM/5 ML SYR ONE (10:32)
[2018-11-16] MEDS ORDERED: BACITRACIN 50,000 UNITS/10 ML SYR IRR ONE (10:32)
[2018-11-16] MEDS ORDERED: CEFAZOLIN 2 GM/DEXTROSE/100 ML BAG IV ONE (11:04)
--- NOTE | 2018-11-16 11:05 | PDHPUP ---
History & Physical Update H&P update statement: This history and physical update is based on an assessment of the patient which was completed after admission or registration (within 24 hours), but prior to the surgery/procedure. H&P update: H&P reviewed & patient examined, no change in patient's condition since H&P completed
[2018-11-16] MEDS ORDERED: MIDAZOLAM 2 MG/2 ML VIAL IVP ONE (11:10)
[2018-11-16] MEDS ORDERED: PROPOFOL/EMULSION 500 MG/50 ML BOTTLE IV ONE (11:26)
[2018-11-16] MEDS ORDERED: LIDOCAINE 2% JELLY 6 ML TOPICAL SYR ONE (11:26)
[2018-11-16] MEDS ORDERED: fentaNYL 100 MCG/2 ML INJ ONE ×2 (11:26→13:37)
[2018-11-16] MEDS ORDERED: LIDOCAINE 2% 100 MG/5 ML SYR ONE (11:29)
[2018-11-16] MEDS ORDERED: LIDO/EPI 1% **for epidural** 30 ML SDV ONE (11:44)
[2018-11-16] MEDS ORDERED: ePHEDrine SULFATE 25 MG/5 ML SYR ONE (11:47)
--- NOTE | 2018-11-16 12:11 | PDANEPAE ---
ANE History of Present Illness L mastectomy, SN biopsy and immediate reconstruction for breast Ca ANE Past Medical History - Cardiovascular History Hx Hypertension: No Hx Arrhythmias: No Hx Chest Pain: No Hx Coronary Artery / Peripheral Vascular Disease: No Hx CHF / Valvular Disease: Yes Hx Palpitations: No Cardiovascular History Comment: ME AND STENT 06/17/18. MITRAL VALVE PROLAPSE - Pulmonary History Hx COPD: No Hx Asthma/Reactive Airway Disease: No Hx Recent Upper Respiratory Infection: No Hx Oxygen in Use at Home: Yes O2 in Use at Home (L/minute): 3.5 Hx Sleep Apnea: Yes Sleep Apnea Screening Result - Last Documented: Positive Pulmonary History Comment: VIVIANA USES ORAL DEVICE AND HS OXYGEN - Neurologic History Hx Cerebrovascular Accident: No Hx Seizures: No Hx Dementia: No - Endocrine History Hx Diabetes: No Endocrine History Comment: GRAVES DX IN REMISSION - Renal History Hx Renal Disorders: No - Liver History Hx Hepatic Disorders: No - Neurological & Psychiatric Hx Hx Neurological and Psychiatric Disorders: No - Cancer History Hx Cancer: Yes Cancer History Comment: BREAST - Congenital Disorder History Hx Congenital Disorders: No - GI History Hx Gastrointestinal Disorders: Yes Gastrointestinal History Comment: GERD. POLYPS. LEG CRAMPS USES IRON - Other Health History Other Health History: MISSING TOOTH. DDD - Chronic Pain History Chronic Pain: No - Surgical History Prior Surgeries: RT MASTECTOMY 2007. BREAST AUGUMENTATION. RT KNEE ACL. TONSILLECTOMY. APPENDECTOMY. REMVL PERFORATED IUD. TUBAL LIGATION ANE Review of Systems Review of Systems: - Exercise capacity METS (RN): 4 METS ANE Patient History - Allergies Allergies/Adverse Reactions: celecoxib [From Celebrex] Allergy (Mild, Verified 06/17/18 05:09) rash/hives - Home Medications Home medications: home medication list seen and reviewed Home Medications: Albuterol [Proventil Inhaler HFA (*)] 1 - 2 puffs IH Q4H PRN 06/17/18 [Last Taken Unknown] Fluticasone/Salmeterol [Advair Hfa 115-21 Mcg Inhaler] 1 - 2 puffs IH PRN PRN [Last Taken 11/16/18 0700] Tears/Dextran 70/Hypromellose [Natural Balance Tears (*)] 1 drop EACHEYE Q2 PRN 06/17/18 [Last Taken Unknown] guaiFENesin [Mucinex 600 MG (*)] 600 mg PO BID PRN 06/17/18 [Last Taken 11/14/18 ] Cholecalciferol Vit D3 [Vitamin D3 (*)] 1,000 units PO DAILY 11/01/18 [Last Taken 11/13/18] Clopidogrel Bisulfate [Plavix (*)] 75 mg PO DAILY 11/01/18 [Last Taken 11/11/18] Cyanocobalamin [Vitamin B12 (*)] 1,000 mcg PO DAILY 11/01/18 [Last Taken ] Escitalopram Oxalate [Lexapro] 20 mg PO HS 11/01/18 [Last Taken 11/14/18] Ferrous Sulfate [Ferrous Sulf 325 MG (*)] 325 mg PO DAILY 11/01/18 [Last Taken 11/13/18] Herbals/Supplements -Info Only 1 ea PO DAILY 11/01/18 [Last Taken 11/13/18] Melatonin [Melatonin 3 MG (*)] 10 mg PO HS 11/01/18 [Last Taken 11/09/18] Mineral Oil/Petrolatum,White [Systane Nighttime Eye Oint] 1 devin EACHEYE HS 11/01 [Last Taken 11/15/18] Pyridoxine HCl [Vitamin B-6 100 mg (*)] 100 mg PO DAILY 11/01/18 [Last Taken ] Vitamin B Complex [Vitamin B Complex (OTC)] 1 each PO DAILY 11/01/18 [Last Taken 11/13/18] - NPO status NPO Status: no food or drink >8 hours NPO Since - Liquids (Date): 11/16/18 NPO Since - Liquids (Time): 07:00 NPO Since - Solids (Date): 11/15/18 NPO Since - Solids (Time): 23:00 - Anes Hx Anes Hx: no prior problems - Smoking Hx Smoking Status: Former smoker - Alcohol Use Alcohol Use: None - Family Anes Hx Family Anes Hx: none ANE Labs/Vital Signs - Labs Result Diagrams: 11/16/18 08:50 - Vital Signs Blood Pressure: 118/72 Heart Rate: 71 Respiratory Rate: 16 O2 Sat (%): 96 Height: 162.56 cm Weight: 57.153 kg ANE Physical Exam - Airway Neck exam: FROM Mallampati Score: Class 2 Mouth exam: normal dental/mouth exam - Pulmonary Pulmonary: no respiratory distress - Cardiovascular Cardiovascular: regular rate and rhythym - ASA Status ASA Status: II ANE Anesthesia Plan Anesthesia Plan: GA w LMA Urgent/Emergent Case: Anes eval completed preop but documented later for safe timely pt care
[2018-11-16] MEDS ORDERED: HYDROCODONE/APAP 5/325 TAB PO PRN ×2 (12:22→12:54)
[2018-11-16] MEDS ORDERED: diphenhydrAMINE 25 MG CAP PO PRN (12:22)
[2018-11-16] MEDS ORDERED: ACETAMINOPHEN 325 MG TAB PO PRN (12:22)
[2018-11-16] MEDS ORDERED: oxyCODONE IR 5 MG TAB PO PRN ×2 (12:25→12:54)
[2018-11-16] MEDS ORDERED: NALOXONE HCL 0.4 MG/ML INJ IVP PRN (12:54)
[2018-11-16] MEDS ORDERED: PHENYLEPHRINE HCL 100 MCG/ML SYR IVP PRN (12:54)
[2018-11-16] MEDS ORDERED: DEXAMETHASONE 4 MG/ML VIAL IVP PRN (12:54)
[2018-11-16] MEDS ORDERED: fentaNYL 100 MCG/2 ML INJ IVP PRN (12:54)
[2018-11-16] MEDS ORDERED: ALBUTEROL 3 ML DEYVIAL IH PRN (12:54)
[2018-11-16] MEDS ORDERED: LABETALOL HCL 5 MG/ML 20 ML MDV IVP PRN (12:54)
[2018-11-16] MEDS ORDERED: ONDANSETRON 4 MG/2 ML VIAL IVP PRN (12:54)
[2018-11-16] MEDS ORDERED: MEPERIDINE 25 MG/0.5 ML AMP IVP PRN (12:54)
[2018-11-16] MEDS ORDERED: PROMETHAZINE HCL 25 MG/ML INJ IVP PRN (12:54)
[2018-11-16] MEDS ORDERED: LR 500 ML IV PRN (12:54)
[2018-11-16] MEDS ORDERED: METOCLOPRAMIDE 10 MG/2 ML VIAL IVP PRN (12:54)
--- NOTE | 2018-11-16 13:31 | POSTANESTH ---
Post Anesthetic Evaluation Cardiovascular Status: Normal, Stable Respiratory Status: Normal, Stable Level of Consciousness/Mental Status: Can Participate in Eval Pain Control: Adequate, Prn Tx Ordered Nausea/Vomiting Control: Adequate, Prn Tx Ordered Complications Possibly Related to Anesthesia: None Noted
--- NOTE | 2018-11-16 13:36 | GOP ---
[f rep st] OPERATIVE REPORT DATE OF OPERATION: 11/16/2018 SURGEON: Nolberto Trejo Jr., MD ANESTHESIA: General inhalational anesthesia. ANESTHESIOLOGIST: Reynaldo Cha MD PREOPERATIVE DIAGNOSIS: Left breast cancer. POSTOPERATIVE DIAGNOSIS: Left breast cancer. PROCEDURE PERFORMED: Immediate left breast reconstruction using tissue graphics editor. FINDINGS: ESTIMATED BLOOD LOSS: During reconstruction, 10 cc. INDICATIONS: The patient is a 68-year-old white female who had undergone a previous right-sided mast ectomy with implant reconstruction following a breast cancer diagnosis many years ago. She was diagn osed with a second left-sided breast cancer and came in today to have a mastectomy, sentinel lymph no de biopsy, and tissue graphics editor placement. DESCRIPTION OF PROCEDURE: After risks and benefits of procedure were explained to the patient and fo rmal operative consent was obtained, she was brought to the operating room by Dr. Morenita Villa, where an uncomplicated left-sided mastectomy with left sentinel node biopsy were performed. Meticulous hem ostasis was assured in the pocket. She had a previous implant which I removed. A submuscular pocket was dissected to allow placement of the tissue graphics editor. The tissue graphics editor was thoroughly tested, evacuated of air and refilled with 300 cc of air. It was then sutured down to the chest wall using 2-0 PDS suture. A 15 round drain was placed. The pectoralis major muscle was tacked to the posterio r aspect of the skin sparing mastectomy flap using 2-0 Vicryl suture. The pocket was closed using a running 3-0 Vicryl suture. Skin edges reapproximated using everting deep dermal 3-0 Monocryl suture and further everted using surgical marcelo. 20 cc of 0.25% plain Marcaine was instilled into the poc ket. She had bacitracin, Xeroform, and 4 x 4's applied to her incisions with a compressive bra. She was extubated in the OR, and taken to recovery room awake in stable condition. TISSUE EXPERIMENTAL DISPLAY BUILDER: [employer] Natrelle 133 FX 350 cc device filled to 300 cc with air. DRAINS: One HEIDI drain placed. COMPLICATIONS: No complications. /[id number]/MODL
--- NOTE | 2018-11-16 16:11 | SOAPPROG ---
SOAP Progress Note Assessment/Plan: Assessment: 68 year old female s/p left mastectomy with SN biopsy Plan: Monitor pain Regular diet Ambulate ad stan Plan for discharge home tomorrow if progressing well S: Patient anxious about pending pathology report. Postoperative pain controlled. Tolerating clears without nausea O: Sitting upright in bed, NAD No increased work of breathing No peripheral edema Incision CDI. 11/16/18 16:03 Objective: Vital Signs Temp Pulse Resp BP Pulse Ox 36.4 C 75 18 116/69 93 11/16/18 15:55 11/16/18 15:55 11/16/18 15:55 11/16/18 15:55 11/16/18 15:55 Laboratory Results 11/16/18 08:50 11/15/18 11/16/18 11/17/18 05:59 05:59 05:59 Intake Total 1400 Output Total 50 Balance 1350 ICD10 Worksheet Patient Problems: Problems Problem Status Onset Chest pain Acute Chronic Disease Mgmt/Transitional Care Acute STEMI (ST elevation myocardial infarction) Acute
--- NOTE | 2018-11-16 16:22 | ASMTCMCOM ---
CM Note CM Note Notes: CM reviewed pt's chart for d/c planning. Pt is a 68 y/o woman who had surgery today. She has been diagnosed with breast cancer in her left breast. She had a mascectomy with sentinal node biopsy and left breast reconstruction with tissue machine feller. There are no CM needs identified at this time; CM will follow for changes. D/C Plan: Anticipate independent. Date Signed: 11/16/2018 04:22 PM Electronically Signed By:Princess Clarke
--- NOTE | 2018-11-16 16:27 | POSTOPPROG ---
Post Op Note Date of Operation: 11/16/18 Surgeon: Morenita Villa Assembler Wire Mesh Gate: good Anesthesiologist: rolo Anesthesia: GET(General Endotracheal) Pre-op Diagnosis: left breast can Post-op Diagnosis: same Indication: 68 yo with left breast can Procedure: L mast l sln Inf/Abcess present in the surg proc area at time of surgery?: No EBL: Minimal Drains: Valente Willis Specimen(s): breast and lymph node
[2018-11-16] MEDS: CYCLOBENZAPRINE 10 MG TAB PO SCH ×2 (16:58→21:24)
--- NOTE | 2018-11-17 08:05 | GOP ---
[f rep st] OPERATIVE REPORT DATE OF OPERATION: 11/16/2018 SURGEON: Morenita Villa MD [facility] COUNSELOR: Germán Trejo ANESTHESIA: General. 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 POSTOPERATIVE DIAGNOSIS: Left breast upper outer invasive ductal carcinoma. PROCEDURE PERFORMED: Left nipple sparing mastectomy with left sentinel lymph node biopsy. FINDINGS: No unusual findings SPECIMENS: Left breast short superior, long lateral, double short nipple pad, sentinel lymph node. ESTIMATED BLOOD LOSS: 10 cc. INDICATIONS: The patient is a 68-year-old woman who has a history of right breast cancer. She is status post mastectomies with reconstruction. She has a new diagnosis of left breast cancer and mastectomy and exchange of her implant is indicated. DESCRIPTION OF PROCEDURE: Patient was brought into the operating room, placed supine on the table and general anesthesia was administered. Her bilateral neck and chest were prepped and draped in the usual sterile fashion. I made an incision at her inframammary crease. I created superior and inferior skin flaps. I used uterine dilators to create planes for the mastectomies. Dr. Trejo removed the previous implant out of the capsule. I dissected posteriorly to release the pectoralis in the capsule from her [place] breast tissue and I continued my dissection anteriorly to the level of the sternum, clavicle and anterior axillary line. The breast was marked short superior, long lateral, double short nipple pad. Hemostasis was achieved in the cavity. I then used the gamma probe to identify the sentinel lymph node in the left axilla. I circumferentially dissected this and excised it. It measured 1700 ex Vivo and the background was quiet. This was submitted to Pathology for permanent. Dr. Trejo was then able to complete his portion of the case. /[id number]/MODL MTDD
[2018-11-17] MEDS: CYCLOBENZAPRINE 10 MG TAB PO SCH (08:16)
[2018-11-17 11:13] VITALS: BP 112/64
--- NOTE | 2018-11-17 11:54 | SOAPPROG ---
SOAP Progress Note Assessment/Plan: Assessment: DOING WELL AND WANTS TO GO HOME MINIMAL DRAINAGE/ DRESSINGS INTACT AFEBRILE/ VS OK/ NO COMPLAINTS CHEST CLEAR/ LEGS NONTENDER/ COR RR Plan:HOME TODAY/ PT HAS HER OWN RXs 11/17/18 11:52 Objective: Vital Signs Temp Pulse Resp BP Pulse Ox 36.8 C 63 16 112/64 93 11/17/18 11:10 11/17/18 11:10 11/17/18 11:10 11/17/18 11:10 11/17/18 11:10 Laboratory Results 11/16/18 08:50 11/16/18 11/17/18 11/18/18 05:59 05:59 05:59 Intake Total 2600 Output Total 745 10 Balance 1855 -10 ICD10 Worksheet Patient Problems: Problems Problem Status Onset Chest pain Acute Chronic Disease Mgmt/Transitional Care Acute STEMI (ST elevation myocardial infarction) Acute
--- NOTE | 2018-11-17 12:16 | ASDISCHSUM ---
Discharge Information Plan Status:Home with No Needs Medically Cleared to Leave: Discharge Date: CM D/C Disposition:Home, Routine, Self-Care ADT D/C Disposition:Home, Routine, Self-Care Projected Discharge Date: Transportation at D/C:Family Discharge Delay Reason: Follow-Up Date: Discharge Slot: Final Diagnosis: Placement Information Patient Contact Information Contact Name:GHADA Relationship:Theron Address: Work Phone: City: [facility] Phone: State/[employer] Code: Email: Financial Information Financial Class:Medicare Primary Plan Desc:MEDICARE OUTPATIENT Primary Plan Number:[id number] Secondary Plan Desc:GELY Secondary Plan Number:[id number] Assessment Information LACE LACE Length of stay for Answers: Less than 1 day current admission Acuity / Level of Answers: No Care: Did the patient have an inpatient admission? Comorbidities - select Answers: Any tumor (including all that apply lymphoma or leukemia) # of Emergency department Answers: 0 visits in the last 6 months Score: 2 Date Signed: 11/17/2018 12:15 PM Electronically Signed By:Princess Clarke [facility] CM Progress Note CM Note CM Note Notes: CM reviewed pt's chart for d/c planning. Pt is a 68 y/o woman who had surgery today. She has been diagnosed with breast cancer in her left breast. She had a mascectomy with sentinal node biopsy and left breast reconstruction with tissue youth program director. There are no CM needs identified at this time; CM will follow for changes. D/C Plan: Anticipate independent. Date Signed: 11/16/2018 04:22 PM Electronically Signed By:Princess Clarke Intervention Information
[2018-11-18] MEDS ORDERED: ENOXAPARIN 40 MG/0.4 ML SYR SC SCH (09:00)
== END 2018-11-17 15:16 | disposition home or self-care (01) ==
LOC: F3N 07:56 → F1N 15:17
PROVIDERS: ADMIT Surgery; ATTEND Surgery
PROC: 07B60ZX Excision of Left Axillary Lymphatic, Open Approach, Diagnostic (ICD-10-PCS; principal; 2018-11-16 11:00)
PROC: 0HTU0ZZ Resection of Left Breast, Open Approach (ICD-10-PCS; principal; 2018-11-16 11:00)
PROC: 0HHU0NZ Insertion of Tissue Expander into Left Breast, Open Approach (ICD-10-PCS; 2018-11-16 11:00)
DX: C50.412 Malignant neoplasm of upper-outer quadrant of left female breast (principal); I25.2 Old myocardial infarction; Z95.5 Presence of coronary angioplasty implant and graft; I34.0 Nonrheumatic mitral (valve) insufficiency; G47.33 Obstructive sleep apnea (adult) (pediatric)
CPT/HCPCS: 19303; 19357; 38500; 78195; A9520; J0690; J1580; J2001; J2250; J2704; J3010; Q9968

== ENCOUNTER 2018-12-11 12:56 | Day surgery (SDC) | payer OTHER ==
--- NOTE | 2018-12-10 16:58 | GHP ---
[f rep st] PREOP HISTORY AND PHYSICAL DATE OF ADMISSION: 12/11/2018 POSTPROCEDURE DIAGNOSES: Left breast cancer. HISTORY OF PRESENT ILLNESS: A 68-year-old woman who was diagnosed with a left breast invasive ductal carcinoma. She has a history of DCIS in 2004, of the right breast, underwent lumpectomy, positive m argin, then mastectomy with reconstruction. She had her screening mammogram in July 2018, which r evealed a developing nodule versus overlapping breast parenchymal tissue in the left upper outer ginette st medial to the nipple line. Diagnostic mammogram and ultrasound on 08/16/2018, showed parenchymal asymmetry at the 12 o'clock position of the left breast, which did not resolve on spot compression vi ews. Ultrasound revealed a vague subcentimeter focus of irregularly marginated acoustic shadowing an d some peripheral hyperemia at the 12 o'clock position 4 cm from the nipple, BI-RADS 4. She had a br east MRI performed on 09/21/2018, which showed upper left breast spiculated nodule measuring 9 mm at the 12 o'clock position. Ultrasound-guided breast biopsy on 10/03/2018, revealed invasive ductal car cinoma, ER positive, VA positive, HER-2/yt negative, clinical stage IA, T1b N0 M0. She was taken to the operating room by Dr. Morenita Villa on 11/16/2018, for left mastectomy and left sentinel lymph nod e biopsy. This is followed by Dr. Drew Trejo for reconstruction. The final pathology showed a posi tive margin. She presents at this time for re-excision of the positive margin. PAST MEDICAL HISTORY: Breast cancer, NM, hyperthyroidism. PAST SURGICAL HISTORY: Right mastectomy with reconstruction, left mastectomy with reconstruction. ALLERGIES: Celebrex. FAMILY MEDICAL HISTORY: No significant family medical history. SOCIAL HISTORY: She denies tobacco, alcohol, or recreational drug use. REVIEW OF SYSTEMS: A 10-point review of systems is negative aside from the HPI. PHYSICAL EXAMINATION: GENERAL: A well-developed, well-nourished woman, in no acute distress. HEENT : Normocephalic, atraumatic. No hearing deficits. Pupils are equal and round. No scleral icterus. Mucous membranes are moist. NECK: Trachea midline. RESPIRATORY: No increased work of breathing. CARDIOVASCULAR: No peripheral edema. LYMPH: No cervical, supraclavicular, or axillary lymphadeno simon bilaterally. BREASTS: Exam performed in upright and supine position. Right mastectomy, well healed. Left mastectomy, well healed. Implants in place bilaterally. SKIN: Surgical incisions are clean, dry and intact without evidence of infection. PSYCH: Mood and affect normal. NEURO: Gross ly intact. IMPRESSION AND PLAN: A 68-year-old woman who has left breast invasive ductal carcinoma, status post mastectomy. She, unfortunately, has a positive margin. She will return to the operating room for re -excision of the margin. Discussed risks including infection, bleeding, damage to surrounding struct ures and need for additional procedures. She understands the risks and would like to proceed. She w as additionally evaluated by Dr. Villa, who agrees with the above impression and plan. /[id number]/MODL
[2018-12-11] MEDS ORDERED: ceFAZolin 2 GM/DEXTROSE 100 ML IV ONE (13:23)
[2018-12-11] MEDS ORDERED: LR 1,000 ML IV ONE (13:23)
[2018-12-11] MEDS ORDERED: LIDOCAINE 1% 2 ML INJ ID PRN (13:23)
[2018-12-11] MEDS ORDERED: LIDOCAINE 1% 300 MG/30 ML SDV ONE (14:06)
[2018-12-11] MEDS ORDERED: GENTAMICIN SULFATE 80 MG/2 ML VIAL ONE (14:07)
[2018-12-11] MEDS ORDERED: BUPIVACAINE 0.25% 30 ML SDV ONE (14:07)
[2018-12-11] MEDS ORDERED: BUPIVACAINE 0.5% 30 ML SDV ONE (14:07)
[2018-12-11] MEDS ORDERED: METHYLENE BLUE 0.5% 50 MG/10 ML AMP ONE (14:07)
[2018-12-11] MEDS ORDERED: BACITRACIN ZINC 0.5 OZ OINTTUBE TP ONE (14:08)
[2018-12-11] MEDS ORDERED: BACITRACIN 50,000 UNITS/10 ML SYR IRR ONE (14:08)
[2018-12-11] MEDS ORDERED: ceFAZolin 1 GM VIAL ONE (14:09)
--- NOTE | 2018-12-11 14:20 | PDANEPAE ---
ANE History of Present Illness 68 y.o. female with hx of breast CA here for L breast reexcision ANE Past Medical History - Cardiovascular History Hx Hypertension: No Hx Arrhythmias: No Hx Chest Pain: No Hx Coronary Artery / Peripheral Vascular Disease: No Hx CHF / Valvular Disease: Yes Hx Palpitations: No Cardiovascular History Comment: VT AND STENT 06/17/18. MITRAL VALVE PROLAPSE - Pulmonary History Hx COPD: No Hx Asthma/Reactive Airway Disease: No Hx Recent Upper Respiratory Infection: No Hx Oxygen in Use at Home: Yes Hx Sleep Apnea: Yes Sleep Apnea Screening Result - Last Documented: Positive Pulmonary History Comment: VIVIANA USES ORAL DEVICE AND HS OXYGEN - Neurologic History Hx Cerebrovascular Accident: No Hx Seizures: No Hx Dementia: No - Endocrine History Hx Diabetes: No Endocrine History Comment: GRAVES DX IN REMISSION - Renal History Hx Renal Disorders: No - Liver History Hx Hepatic Disorders: No - Neurological & Psychiatric Hx Hx Neurological and Psychiatric Disorders: No - Cancer History Hx Cancer: Yes Cancer History Comment: BREAST - Congenital Disorder History Hx Congenital Disorders: No - GI History Hx Gastrointestinal Disorders: Yes Gastrointestinal History Comment: GERD. POLYPS. LEG CRAMPS USES IRON - Other Health History Other Health History: MISSING TOOTH. DDD. LLower breast - Chronic Pain History Chronic Pain: No - Surgical History Prior Surgeries: RT MASTECTOMY 2007. BREAST AUGUMENTATION. RT KNEE ACL. TONSILLECTOMY. APPENDECTOMY. L mastectomy. REMVL PERFORATED IUD. TUBAL LIGATION ANE Review of Systems Review of systems is: negative Review of Systems: - Exercise capacity METS (RN): 4 METS ANE Patient History - Allergies Allergies/Adverse Reactions: celecoxib [From Celebrex] Allergy (Mild, Verified 12/10/18 15:32) rash/hives - Home Medications Home medications: home medication list seen and reviewed Home Medications: Albuterol [Proventil Inhaler HFA (*)] 06/17/18 [Last Taken 2 Weeks Ago ~] Fluticasone/Salmeterol [Advair Hfa 115-21 Mcg Inhaler] 06/17/18 [Last Taken ] Tears/Dextran 70/Hypromellose [Natural Balance Tears (*)] 06/17/18 [Last Taken 2 Months Ago ~10/10/18] guaiFENesin [Mucinex 600 MG (*)] 06/17/18 [Last Taken 3 Weeks Ago ~11/20/18] Cholecalciferol Vit D3 [Vitamin D3 (*)] 11/01/18 [Last Taken 12/08/18] Clopidogrel Bisulfate [Plavix (*)] 11/01/18 [Last Taken 12/05/18] Cyanocobalamin [Vitamin B12 (*)] 11/01/18 [Last Taken 12/08/18] Escitalopram Oxalate [Lexapro] 11/01/18 [Last Taken 12/10/18] Ferrous Sulfate [Ferrous Sulf 325 MG (*)] 11/01/18 [Last Taken 12/10/18] Herbals/Supplements -Info Only 11/01/18 [Last Taken 12/08/18] Melatonin [Melatonin 3 MG (*)] 11/01/18 [Last Taken 12/10/18] Mineral Oil/Petrolatum,White [Systane Nighttime Eye Oint] 11/01/18 [Last Taken 12/10/18] Pyridoxine HCl [Vitamin B-6 100 mg (*)] 11/01/18 [Last Taken 12/08/18] Vitamin B Complex [Vitamin B Complex (OTC)] 11/01/18 [Last Taken 12/08/18] Aspirin [Aspirin 81mg (*)] 12/10/18 [Last Taken 12/06/18] Atorvastatin Calcium [Lipitor 40 mg (*)] 12/10/18 [Last Taken 12/11/18 08:30] Famotidine [Pepcid 20 MG (*)] 12/10/18 [Last Taken 12/11/18 08:30] - NPO status NPO Status: no food or drink >8 hours - Anes Hx Anes Hx: no prior problems - Smoking Hx Smoking Status: Former smoker - Family Anes Hx Family Hx Anesthesia Complications: none ANE Labs/Vital Signs - Vital Signs Height: 162.56 cm Weight: 56.699 kg ANE Physical Exam - Airway Neck exam: FROM Mallampati Score: Class 2 Mouth exam: normal dental/mouth exam - Pulmonary Pulmonary: no respiratory distress - Cardiovascular Cardiovascular: regular rate and rhythym - ASA Status ASA Status: III ANE Anesthesia Plan Anesthesia Plan: GA w LMA Total IV Anesthesia: Yes
[2018-12-11] MEDS ORDERED: MIDAZOLAM 2 MG/2 ML VIAL IVP ONE (14:31)
[2018-12-11] MEDS ORDERED: fentaNYL 100 MCG/2 ML INJ ONE ×2 (14:36→15:28)
[2018-12-11] MEDS ORDERED: PROPOFOL/EMULSION 500 MG/50 ML BOTTLE IV ONE (14:36)
[2018-12-11] MEDS ORDERED: PROPOFOL 200 MG/20 ML VIAL ONE (14:36)
[2018-12-11] MEDS ORDERED: LIDOCAINE 2% 5 ML SDV ONE (14:39)
--- NOTE | 2018-12-11 14:43 | PDHPUP ---
History & Physical Update H&P update statement: This history and physical update is based on an assessment of the patient which was completed after admission or registration (within 24 hours), but prior to the surgery/procedure. H&P update: H&P reviewed & patient examined H&P changes: upper outer positive margin, skin necrosis lower inner
[2018-12-11] MEDS ORDERED: DEXAMETHASONE 4 MG/ML VIAL ONE (14:47)
[2018-12-11] MEDS ORDERED: LIDO/EPI 1% **for epidural** 30 ML SDV ONE (15:06)
[2018-12-11] MEDS ORDERED: ONDANSETRON 4 MG/2 ML VIAL ONE (15:38)
[2018-12-11] MEDS ORDERED: ONDANSETRON 4 MG/2 ML VIAL IVP PRN (15:40)
[2018-12-11] MEDS ORDERED: LR 500 ML IV PRN (15:40)
[2018-12-11] MEDS ORDERED: HYDROCODONE/APAP 5/325 TAB PO PRN (15:40)
[2018-12-11] MEDS ORDERED: HYDROmorphONE/DILAUDID 2 MG/ML INJ IVP PRN (15:40)
[2018-12-11] MEDS ORDERED: fentaNYL 100 MCG/2 ML INJ IVP PRN (15:40)
[2018-12-11] MEDS ORDERED: NALOXONE HCL 0.4 MG/ML INJ IVP PRN (15:40)
--- NOTE | 2018-12-11 15:40 | POSTOPPROG ---
Post Op Note Date of Operation: 12/11/18 Surgeon: Morenita Villa Anesthesiologist: benigno Anesthesia: LMA Pre-op Diagnosis: breast cancer, positive margin Post-op Diagnosis: same Indication: 68 yo with invasive ductal carcinoma and positive margin Procedure: re excision upper outer Findings: no unusual Inf/Abcess present in the surg proc area at time of surgery?: No EBL: Minimal Specimen(s): l breast tissue
--- NOTE | 2018-12-11 16:06 | POSTANESTH ---
Post Anesthetic Evaluation Cardiovascular Status: Normal, Stable, Similar to Pre-Op Cond Respiratory Status: Normal, Stable, Similar to Pre-op Cond. Level of Consciousness/Mental Status: Alert and Oriented Pain Control: Adequate, Prn Tx Ordered Nausea/Vomiting Control: Adequate, Prn Tx Ordered Complications Possibly Related to Anesthesia: None Noted
--- NOTE | 2018-12-11 16:18 | GOP ---
[f rep st] OPERATIVE REPORT DATE OF OPERATION: 12/11/2018 SURGEON: Nolberto Trejo Jr., MD PREOPERATIVE DIAGNOSIS: Left mastectomy flap necrosis, status post mastectomy with tissue counter maker r econstruction. POSTOPERATIVE DIAGNOSIS: Left mastectomy flap necrosis, status post mastectomy with tissue counter maker reconstruction. PROCEDURE PERFORMED: 1. Debridement of devitalized left mastectomy flap. 2. Revision of left reconstructive tissue counter maker pocket with repositioning of tissue counter maker. 3. Adjacent tissue transfer mastectomy flap advancement to close defect, 12 cm x 3 cm. FINDINGS: INDICATIONS: The patient underwent a left-sided nipple sparing mastectomy following breast cancer di agnosis several weeks ago. She developed ischemia of the mastectomy flap with subsequent dry necrosi s. She had a positive margin with her mastectomy and was brought back to the operating room today to have the reconstruction revised and additional margins achieved with Dr. Morenita Villa. DESCRIPTION OF PROCEDURE: She was taken to the operating room. After adequate inhalational general anesthesia was provided by Dr. Rah Acevedo, her premarked area for mastectomy necrosis excision was remarked and injected with lidocaine containing adrenaline. She was prepped and draped in magan l sterile fashion. Procedure began by excising all devitalized dry eschar. This left a defect approximately 12 cm x 3 c m in its greatest diameter. The tissue counter maker was deflated. It was tested to ensure integrity and released. It was taken off the field and soaked in triple antibiotic saline solution. Dr. Villa wa s then able to perform additional margin resection. The tissue counter maker had previously been too high on the chest wall and it was repositioned by performing upper peripheral scar tissue release and cap sulectomy. Once the pocket had been re-dissected to accommodate that tissue counter maker, the pocket was irrigated with triple antibiotic saline. The tissue counter maker was completely deflated and placed carmela k into the correct anatomic position. It was sutured down to the chest wall using 2-0 PDS suture. A 15 round drain was placed. The pocket was irrigated again using triple antibiotic solution. The skin edges were then reapproxim ated using everting deep dermal 3-0 Monocryl suture and further everted using surgical marcelo. The drain was sutured into place. 15 cc of 0.25% plain Marcaine was instilled into the drain. She had b acitracin, Xeroform, 4x4s applied to her incisions. She was extubated in the operating room and take n to recovery room awake in stable condition. DRAINS: 1 drain placed. COMPLICATIONS: No complications. CLINICAL COURSE: After risks and benefits of procedure were explained to the patient, highlighting b leeding, infection, tissue counter maker malposition, postoperative discomfort, need for premature tissue counter maker removal, additional soft tissue necrosis, poor cosmetic outcome, and need for additional pro cedures, formal operative consent was obtained. /[id number]/MODL
--- NOTE | 2018-12-11 16:59 | GOP ---
[f rep st] OPERATIVE REPORT DATE OF OPERATION: 12/11/2018 SURGEON: Morenita Villa MD ANESTHESIA: General. ANESTHESIOLOGIST: Trae Acevedo MD PREOPERATIVE DIAGNOSIS: Left breast upper outer invasive ductal carcinoma with positive margin. POSTOPERATIVE DIAGNOSIS: Left breast upper outer invasive ductal carcinoma with positive margin. PROCEDURE PERFORMED: Left breast reexcision upper outer margin. FINDINGS: No unusual SPECIMENS: Upper outer margin inked. I took an additional margin medial and superior and the anterior margin was inked green. ESTIMATED BLOOD LOSS: 10 cc. INDICATIONS: Heaven Ricci is a 68-year-old woman who was recently taken to the operating room for invasive ductal carcinoma of the left breast. Unfortunately , her pathology showed a positive anterior margin in the upper outer quadrant. She also developed flap necrosis in the lower inner quadrant. DESCRIPTION OF PROCEDURE: The patient was brought into the operating room, placed supine on the table, and general anesthesia was administered. Her breast was prepped and draped in the usual sterile fashion. Dr. Trejo began the case and excised the necrotic skin and the left lower inner quadrant. I was able to use this exposure and used an Allis clamp to grasp a small amount of tissue in the upper outer quadrant. The initial specimen I took, I inked it green anterior, red superior, orange lateral, blue inferior, yellow medial, black posterior. I then performed a bit more exposure and was able to take a small additional piece superior medial to the original specimen, this was inked green anterior. Hemostasis is achieved. Dr. Trejo was then able to complete his portion of the case. /[id number]/MODL MTDD
[2018-12-11 18:35] VITALS: BP 118/76
== END 2018-12-11 18:33 | disposition home or self-care (01) ==
LOC: FSGY 12:56
PROVIDERS: ATTEND Surgery
PROC: 0HW Skin and Breast, Revision (ICD-10-PCS; 2018-12-11)
PROC: 0HBU0ZZ Excision of Left Breast, Open Approach (ICD-10-PCS; principal; 2018-12-11 14:45)
DX: C50.412 Malignant neoplasm of upper-outer quadrant of left female breast (principal); I25.2 Old myocardial infarction; Z95.5 Presence of coronary angioplasty implant and graft; I34.0 Nonrheumatic mitral (valve) insufficiency; G47.33 Obstructive sleep apnea (adult) (pediatric)
CPT/HCPCS: J0690; J1100; J1580; J2250; J2405; J2704; J3010; Q9968

== ENCOUNTER → 2019-01-08 | Outpatient (CLI) | payer OTHER | LOC: FIMAGING 14:18 | PROVIDERS: ATTEND Internal Medicine Hematology & Oncology | DX: C50.812 Malignant neoplasm of overlapping sites of left female breast (principal) ==